=== PATIENT | female | born 1930 | race Caucasian/White ===

== ENCOUNTER 2017-03-11 09:49 | Inpatient (IN) | payer MEDICARE ==
[~2017-03-11] VITALS: Ht 160 cm; Wt 72.5 kg
[2017-03-11] MEDS ORDERED: ASPIRIN 81 MG TABLET CHEW ONE (10:47)
[2017-03-11] MEDS ORDERED: ONDANSETRON 2MG/ML, 2ML ONE (10:47)
[2017-03-11] MEDS ORDERED: ASPIRIN 81 MG TABLET CHEW PO ONE (11:00)
[2017-03-11] MEDS ORDERED: SODIUM CHLORIDE FLUSH 10ML SYR IVF ONE (11:00)
[2017-03-11] MEDS ORDERED: ONDANSETRON 2MG/ML, 2ML IVPush ONE (11:00)
[2017-03-11 11:11] LABS: ASPARTATE AMINO TRANSFERASE 23 U/L (15-37); BLOOD UREA NITROGEN 23 mg/dL (7-18)
[2017-03-11 11:16] LABS: IS PT STATUS REG ER OR PRE ER? YES
[2017-03-11] MEDS ORDERED: CEFOTETAN PMX 1GM/50ML 50 ML ONE (11:52)
[2017-03-11] MEDS ORDERED: HYDR500C3 PO ×2 (13:24→18:22)
[2017-03-11] MEDS ORDERED: HYDR12.53 PO (13:24)
[2017-03-11] MEDS ORDERED: ASPI-496 PO (13:26)
[2017-03-11] MEDS ORDERED: POTASSIUM CHLORIDE IV SCH (13:41)
[2017-03-11] MEDS ORDERED: MAGNESIUM SULFATE IV SCH (13:41)
[2017-03-11] MEDS ORDERED: SODIUM CHLORIDE 0.9% IV SCH (13:41)
[2017-03-11] MEDS ORDERED: POLYETHYLENE GLYCOL 17 GM PACKET PO PRN (14:00)
[2017-03-11] MEDS ORDERED: ONDANSETRON 2MG/ML, 2ML IVP PRN (14:00)
[2017-03-11] MEDS ORDERED: BISACODYL 10 MG SUPP PR PRN (14:00)
[2017-03-11] MEDS ORDERED: ENOXAPARIN 40 MG/0.4 ML SQ SCH (14:00)
[2017-03-11] MEDS ORDERED: ACETAMINOPHEN 325 MG TABLET PO PRN (14:00)
[2017-03-11] MEDS ORDERED: DOCUSATE 100 MG CAPSULE PO PRN (14:00)
[2017-03-11 16:25] LABS: IS PT STATUS REG ER OR PRE ER? NO
[2017-03-11 17:45] VITALS: BP 121/68
[2017-03-11 19:46] VITALS: BP_SYST 108; BP_SYST 121; BP_SYST 89; BP_DIAS 51; BP_DIAS 59
[2017-03-11] MEDS ORDERED: ATORVASTATIN 40 MG TABLET PO SCH (21:00)
[2017-03-11 22:38] LABS: IS PT STATUS REG ER OR PRE ER? NO
[2017-03-12 02:10] VITALS: BP 101/52
[2017-03-12 06:52] LABS: BLOOD UREA NITROGEN 16 mg/dL (7-18)
[2017-03-12 07:20] VITALS: BP_SYST 105; BP_SYST 109; BP_SYST 95; BP_DIAS 52; BP_DIAS 61; BP_DIAS 62
[2017-03-12] MEDS ORDERED: HYDROXYUREA 500 MG CAPSULE PO SCH (09:00)
[2017-03-12] MEDS ORDERED: CYAN10005 PO (09:42)
[2017-03-12] MEDS ORDERED: POTASSIUM CHLORIDE 20 MEQ TAB.ER.PRT PO ONE (10:00)
[2017-03-12] MEDS ORDERED: CYANOCOBALAMIN 1,000 MCG TABLET PO ONE (10:00)
[2017-03-12 13:49] VITALS: BP 109/69
[2017-03-13] MEDS ORDERED: CYANOCOBALAMIN 1,000 MCG TABLET PO SCH (09:00)
== END 2017-03-12 18:31 | disposition home or self-care (01) | DRG 74 ==
LOC: ED 10:48 → EDIP 12:48 → 4EST 14:25
PROVIDERS: ADMIT Hospitalist
DX: G90.8 Other disorders of autonomic nervous system (principal); I38 Endocarditis, valve unspecified; I95.1 Orthostatic hypotension; D64.9 Anemia, unspecified; E78.5 Hyperlipidemia, unspecified; H35.30 Unspecified macular degeneration; D75.89 Other specified diseases of blood and blood-forming organs; I10 Essential (primary) hypertension; I34.0 Nonrheumatic mitral (valve) insufficiency; I45.81 Long QT syndrome; I49.9 Cardiac arrhythmia, unspecified; D75.1 Secondary polycythemia; I73.9 Peripheral vascular disease, unspecified; K44.9 Diaphragmatic hernia without obstruction or gangrene; M06.9 Rheumatoid arthritis, unspecified; Z82.5 Family history of asthma and other chronic lower respiratory diseases; Z82.49 Family history of ischemic heart disease and other diseases of the circulatory system; Z90.710 Acquired absence of both cervix and uterus; Z90.49 Acquired absence of other specified parts of digestive tract; Y92.89 Other specified places as the place of occurrence of the external cause; I48.91 Unspecified atrial fibrillation; T46.5X5A Adverse effect of other antihypertensive drugs, initial encounter
CPT/HCPCS: 36415; 70450; 71010; 71275; 80048; 80053; 81003; 82607; 82746; 83880; 84443; 84484; 85025; 85379; 85610; 85730; 93005; 93306; 93880; 96374; J1650; J2405; J3475; J3480; J7030

== ENCOUNTER 2018-01-27 13:55 | Observation (INO) | payer MEDICARE ==
[~2018-01-27] VITALS: Ht 160 cm; Wt 69.2 kg
[~2018-01-27 13:55] MED LIST: ASPI-496 PO; CYAN10005 PO; HYDR12.53 PO; HYDR500C3 PO
[2018-01-27 15:15] LABS: BASOPHILS # (AUTO) 0.03 x10^3/uL (0-0.1); BASOPHILS % (AUTO) 1 % (0-1); EOSINOPHILS # (AUTO) 0.03 x10^3/uL (0-0.4); EOSINOPHILS % (AUTO) 1 % (1-7); LYMPHOCYTES # (AUTO) 0.86 x10^3/uL (1-3.4); LYMPHOCYTES % (AUTO) 16 % (22-44); MD NO; MEAN CORPUSCULAR HEMOGLOBIN 36.5 pg (27.0-34.8); MEAN CORPUSCULAR HGB CONC 33.6 g/dL (32.4-35.8); MEAN CORPUSCULAR VOLUME 108.6 fL (80-100); MEAN PLATELET VOLUME 8.3 fL (7.4-10.4); MONOCYTES # (AUTO) 0.43 x10^3/uL (0.2-0.8); MONOCYTES % (AUTO) 8 % (2-9); NEUTROPHILS # (AUTO) 3.92 x10^3/uL (1.8-6.8); NEUTROPHILS % (AUTO) 74 % (42-75); PLATELET COUNT 327 x10^3/uL (130-400); RED CELL DISTRIBUTION WIDTH 14.6 % (9.6-15.2)
[2018-01-27 15:19] LABS: ALANINE AMINOTRANSFERASE 35 U/L (12-78); ANION GAP 7 mmol/L (5-15); CALCIUM 9.3 mg/dL (8.5-10.1); CHLORIDE 110 mmol/L (98-107); CREATININE 1.03 mg/dL (0.55-1.02)
[2018-01-27 15:23] LABS: ALKALINE PHOSPHATASE 69 U/L (45-117); BILIRUBIN,TOTAL 0.6 mg/dL (0.2-1.0); TOTAL PROTEIN 7.2 g/dL (6.4-8.2); TROPONIN I < 0.015 ng/mL (0.000-0.045)
[2018-01-27] MEDS ORDERED: ENOXAPARIN 40 MG/0.4 ML SQ SCH (17:30)
[2018-01-27] MEDS: SODIUM CHLORIDE 0.9% 1,000 ML IV SCH (18:30)
[2018-01-27 18:32] VITALS: BP 144/82
[2018-01-27 18:48] LABS: TROPONIN I < 0.015 ng/mL (0.000-0.045)
[2018-01-27 20:22] LABS: MICROSCOPIC AUTO
[2018-01-27 20:24] LABS: CULTURE INDICATED? YES
[2018-01-27] MEDS ORDERED: CEFTRIAXONE PMX 1GM/50ML 50 ML IV SCH (23:00)
[2018-01-27 23:54] LABS: TROPONIN I < 0.015 ng/mL (0.000-0.045)
[2018-01-28 03:11] VITALS: BP 158/78
[2018-01-28 05:59] LABS: BASOPHILS # (AUTO) 0.01 x10^3/uL (0-0.1); BASOPHILS % (AUTO) 0 % (0-1); EOSINOPHILS # (AUTO) 0.07 x10^3/uL (0-0.4); EOSINOPHILS % (AUTO) 1 % (1-7); LYMPHOCYTES # (AUTO) 0.94 x10^3/uL (1-3.4); LYMPHOCYTES % (AUTO) 19 % (22-44); MD NO; MEAN CORPUSCULAR VOLUME 108.9 fL (80-100); MEAN PLATELET VOLUME 8.6 fL (7.4-10.4); MONOCYTES # (AUTO) 0.45 x10^3/uL (0.2-0.8); MONOCYTES % (AUTO) 9 % (2-9); NEUTROPHILS # (AUTO) 3.62 x10^3/uL (1.8-6.8); NEUTROPHILS % (AUTO) 71 % (42-75); PLATELET COUNT 266 x10^3/uL (130-400); RED BLOOD COUNT 3.52 x10^6/uL (3.82-5.3); RED CELL DISTRIBUTION WIDTH 15.1 % (9.6-15.2)
[2018-01-28 06:04] LABS: CHLORIDE 113 mmol/L (98-107)
[2018-01-28 06:14] LABS: ALANINE AMINOTRANSFERASE 28 U/L (12-78); ALBUMIN 3.3 g/dL (3.4-5.0); ALKALINE PHOSPHATASE 54 U/L (45-117); ANION GAP 7 mmol/L (5-15); BILIRUBIN,TOTAL 0.6 mg/dL (0.2-1.0); CALCIUM 8.4 mg/dL (8.5-10.1); CREATININE 0.79 mg/dL (0.55-1.02); TOTAL PROTEIN 5.9 g/dL (6.4-8.2)
[2018-01-28] MEDS: SODIUM CHLORIDE 0.9% 1,000 ML IV SCH (06:41)
[2018-01-28 07:45] VITALS: BP 130/83
[2018-01-28 13:43] VITALS: BP 118/67
[2018-01-28] MEDS ORDERED: CIPR500T87 PO (16:29)
== END 2018-01-28 17:42 | disposition home or self-care (01) ==
LOC: ED 17:15 → EDIP 17:16 → INTOOBSV 17:16 → ED 17:27 → 4EST 18:00
PROVIDERS: ADMIT Internal Medicine; ATTEND Internal Medicine
DX: R55 Syncope and collapse (principal); I73.9 Peripheral vascular disease, unspecified; M06.9 Rheumatoid arthritis, unspecified; E78.5 Hyperlipidemia, unspecified; I10 Essential (primary) hypertension; R30.0 Dysuria; M79.89 Other specified soft tissue disorders; Z82.5 Family history of asthma and other chronic lower respiratory diseases; Z90.710 Acquired absence of both cervix and uterus
CPT/HCPCS: 36415; 71046; 80053; 81001; 83735; 83880; 84100; 84484; 85025; 87040; 87077; 87086; 87186; 93005; 93306; 93880; 93971; 96361; 96365; 96372; 97162; 99285; G0378; G8978; G8979; G8980; J0696; J1650; J7030

== ENCOUNTER 2018-03-25 08:49 | Emergency (ER) | payer MEDICARE ==
[~2018-03-25] VITALS: Ht 157.5 cm; Wt 65.0 kg
[~2018-03-25 08:49] MED LIST changes: +CIPR500T87 PO
[2018-03-25] MEDS ORDERED: SODIUM CHLORIDE FLUSH 10ML SYR IVF ONE (09:30)
[2018-03-25] MEDS ORDERED: CALCIUM PO (09:37)
[2018-03-25] MEDS ORDERED: AMLO2.5T PO (09:37)
[2018-03-25] MEDS ORDERED: VIT1TABL32 PO (09:37)
[2018-03-25] MEDS ORDERED: ORENCIA IV (09:38)
[2018-03-25] MEDS ORDERED: [UNRECOGNIZED DRUG - REMARK] EACHEYE (09:39)
[2018-03-25 10:02] LABS: BASOPHILS # (AUTO) 0.04 x10^3/uL (0-0.1); BASOPHILS % (AUTO) 1 % (0-1); EOSINOPHILS # (AUTO) 0.06 x10^3/uL (0-0.4); EOSINOPHILS % (AUTO) 1 % (1-7); LYMPHOCYTES # (AUTO) 0.99 x10^3/uL (1-3.4); LYMPHOCYTES % (AUTO) 12 % (22-44); MD NO; MEAN CORPUSCULAR HEMOGLOBIN 36.5 pg (27.0-34.8); MEAN CORPUSCULAR HGB CONC 33.5 g/dL (32.4-35.8); MEAN CORPUSCULAR VOLUME 108.9 fL (80-100); MEAN PLATELET VOLUME 7.9 fL (7.4-10.4); MONOCYTES # (AUTO) 0.57 x10^3/uL (0.2-0.8); MONOCYTES % (AUTO) 7 % (2-9); NEUTROPHILS # (AUTO) 6.56 x10^3/uL (1.8-6.8); NEUTROPHILS % (AUTO) 80 % (42-75); PLATELET COUNT 398 x10^3/uL (130-400); RED CELL DISTRIBUTION WIDTH 14.9 % (9.6-15.2)
[2018-03-25 10:12] LABS: PROTHROMBIN TIME 10.4 Seconds (9.6-11.5)
[2018-03-25 10:14] LABS: ALANINE AMINOTRANSFERASE 28 U/L (12-78); ANION GAP 8 mmol/L (5-15); CALCIUM 8.9 mg/dL (8.5-10.1); CHLORIDE 108 mmol/L (98-107)
[2018-03-25 10:19] LABS: ALKALINE PHOSPHATASE 67 U/L (45-117); BILIRUBIN,TOTAL 0.9 mg/dL (0.2-1.0); TOTAL PROTEIN 7.2 g/dL (6.4-8.2); TROPONIN I < 0.015 ng/mL (0.000-0.045)
[2018-03-25 10:20] LABS: MICROSCOPIC AUTO
[2018-03-25 10:23] LABS: CULTURE INDICATED? YES
[2018-03-25 12:42] VITALS: BP 148/63
== END 2018-03-25 12:49 | disposition home or self-care (01) ==
LOC: ED 10:40
DX: N30.00 Acute cystitis without hematuria (principal); I10 Essential (primary) hypertension; M06.9 Rheumatoid arthritis, unspecified; Z90.49 Acquired absence of other specified parts of digestive tract; Z79.899 Other long term (current) drug therapy; Z86.73 Personal history of transient ischemic attack (TIA), and cerebral infarction without residual deficits
CPT/HCPCS: 36415; 71045; 80053; 81001; 83880; 84443; 84484; 85025; 85610; 85730; 87086; 87147; 93005; 99285

== ENCOUNTER 2018-04-01 12:25 | Emergency (ER) | payer MEDICARE ==
[~2018-04-01] VITALS: Ht 157.5 cm; Wt 64.2 kg
[~2018-04-01 12:25] MED LIST changes: +AMLO2.5T PO; +CALCIUM PO; +ORENCIA IV; +VIT1TABL32 PO; +[UNRECOGNIZED DRUG - REMARK] EACHEYE
[2018-04-01] MEDS ORDERED: ONDANSETRON ODT 4 MG PO ONE (13:00)
[2018-04-01 13:42] LABS: BASOPHILS # (AUTO) 0.04 x10^3/uL (0-0.1); BASOPHILS % (AUTO) 0 % (0-1); EOSINOPHILS # (AUTO) 0.04 x10^3/uL (0-0.4); EOSINOPHILS % (AUTO) 0 % (1-7); LYMPHOCYTES # (AUTO) 0.98 x10^3/uL (1-3.4); LYMPHOCYTES % (AUTO) 10 % (22-44); MD NO; MEAN CORPUSCULAR HEMOGLOBIN 36.4 pg (27.0-34.8); MEAN CORPUSCULAR HGB CONC 33.4 g/dL (32.4-35.8); MEAN CORPUSCULAR VOLUME 108.9 fL (80-100); MEAN PLATELET VOLUME 8.3 fL (7.4-10.4); MONOCYTES # (AUTO) 0.64 x10^3/uL (0.2-0.8); MONOCYTES % (AUTO) 7 % (2-9); NEUTROPHILS # (AUTO) 8.16 x10^3/uL (1.8-6.8); NEUTROPHILS % (AUTO) 83 % (42-75); PLATELET COUNT 410 x10^3/uL (130-400); RED BLOOD COUNT 4.54 x10^6/uL (3.82-5.3); RED CELL DISTRIBUTION WIDTH 15.1 % (9.6-15.2)
[2018-04-01 13:51] LABS: ALANINE AMINOTRANSFERASE 27 U/L (12-78); ALBUMIN 4.3 g/dL (3.4-5.0); ANION GAP 8 mmol/L (5-15); CALCIUM 9.8 mg/dL (8.5-10.1); CHLORIDE 105 mmol/L (98-107); CREATININE 0.99 mg/dL (0.55-1.02)
[2018-04-01 13:53] LABS: ALKALINE PHOSPHATASE 77 U/L (45-117); BILIRUBIN,TOTAL 0.9 mg/dL (0.2-1.0); TOTAL PROTEIN 7.9 g/dL (6.4-8.2)
[2018-04-01] MEDS ORDERED: FAMOTIDINE 20 MG/2 ML IVPush ONE (15:00)
[2018-04-01] MEDS ORDERED: SODIUM CHLORIDE FLUSH 10ML SYR IVF ONE (15:00)
[2018-04-01] MEDS ORDERED: ONDANSETRON ODT 4 MG ONE (15:23)
[2018-04-01] MEDS ORDERED: FAMOTIDINE 20 MG/2 ML ONE (15:23)
[2018-04-01 15:26] LABS: TROPONIN I < 0.015 ng/mL (0.000-0.045)
[2018-04-01 16:04] LABS: MICROSCOPIC AUTO
[2018-04-01 16:12] LABS: CULTURE INDICATED? YES
[2018-04-01] MEDS ORDERED: OMNIPAQUE 350 MG/ML, 100ML BOTTLE ONE (16:17)
[2018-04-01 17:04] VITALS: BP 118/61
== END 2018-04-01 18:09 | disposition home or self-care (01) ==
LOC: ED 17:45
DX: R13.12 Dysphagia, oropharyngeal phase (principal); R11.0 Nausea; R93.5 Abnormal findings on diagnostic imaging of other abdominal regions, including retroperitoneum; R10.13 Epigastric pain; R63.0 Anorexia; I10 Essential (primary) hypertension; M06.9 Rheumatoid arthritis, unspecified; I73.9 Peripheral vascular disease, unspecified; H35.30 Unspecified macular degeneration
CPT/HCPCS: 36415; 71045; 74177; 80053; 81001; 83690; 84484; 85025; 86677; 87086; 93005; 96374; 99285; Q0162; Q9967; S0028

== ENCOUNTER → 2021-06-20 | Outpatient (CLI) | payer MEDICARE ==
[~2021-06-20] MED LIST changes: -AMLO2.5T PO; +AMLO2.5T5 PO; +CEFD300C37 PO; +CYAN-27 PO; -CYAN10005 PO; +HYDR12.517 PO; -HYDR12.53 PO; +MELA1TAB22 PO; +METR500T PO; +SENN-177 PO; +TRAM50TA2 PO
[2021-06-20 10:38] LABS: BASOPHILS % (AUTO) 1 % (0-1); EOSINOPHILS % (AUTO) 1 % (1-7); LYMPHOCYTES % (AUTO) 21 % (22-44); MEAN CORPUSCULAR HEMOGLOBIN 35.9 pg (27.0-34.8); MEAN CORPUSCULAR HGB CONC 33.2 g/dL (32.4-35.8); MONOCYTES % (AUTO) 8 % (2-9); NEUTROPHILS % (AUTO) 70 % (42-75); PLATELET COUNT 277 x10^3/uL (130-400); RED CELL DISTRIBUTION WIDTH 15.9 % (9.6-15.2)
[2021-06-20 10:56] LABS: IRON LEVEL 58 mcg/dL (50-170)
[2021-06-20 10:57] LABS: % IRON SATURATION 19 % (20-55); TOTAL IRON BINDING CAPACITY 298 mcg/dL (250-450)
== END | disposition home or self-care (01) ==
LOC: LAB 10:16
PROVIDERS: ATTEND Internal Medicine
DX: D53.9 Nutritional anemia, unspecified (principal); R53.83 Other fatigue
CPT/HCPCS: 36415; 83540; 83550; 85025